=== PATIENT | female | born 1990 | race Caucasian/White ===

== ENCOUNTER 2024-07-25 06:32 | Day surgery (SDC) | payer OTHER, SELFPAY | END 2024-07-25 14:30 | disposition home or self-care (01) | LOC: GI 06:32 | PROVIDERS: ATTENDING PHYSICIAN Internal Medicine Gastroenterology | DX: R14.0 Abdominal distension (gaseous) (principal); R11.2 Nausea with vomiting, unspecified; R13.10 Dysphagia, unspecified | CPT/HCPCS: 43239; 88305; 88342 ==

== ENCOUNTER 2025-02-28 15:04 | Emergency (ER) | payer OTHER, SELFPAY ==
[2025-02-28 15:17] VITALS: BP 126/83
[2025-02-28 15:43] LABS: Hematocrit 41.6 % (37.0-47.0); Hemoglobin 14.5 g/dL (12.0-16.0); Mean Corp Hgb Conc. 34.9 g/dL (33.0-37.0); Mean Corpuscular Volume 93.3 fL (81.0-99.0); Nucleated Red Blood Cells % 0 %; Platelet Count 284 10^3/uL (130-400); Red Cell Dist. Width 11.8 % (11.5-14.5)
[2025-02-28 15:53] LABS: HCG, Serum Qualitative Screen Negative
[2025-02-28 15:58] LABS: ALT (SGPT) 23 U/L (0-35); AST (SGOT) 24 U/L (14-36); Albumin 4.5 g/dl (3.5-5.0); Alkaline Phosphatase 32 U/L (38-126); Blood Urea Nitrogen 17 mg/dl (7-17); Calcium 8.9 mg/dl (8.4-10.2); Carbon Dioxide 22 mmol/L (22-30); Chloride 109 mmol/L (98-107); Glucose 97 mg/dl (70-99); Potassium 4.6 mmol/L (3.5-5.1); Sodium 140 mmol/L (135-145); Total Protein 6.8 g/dl (6.3-8.2); eGFR > 60.00
--- NOTE | 2025-02-28 18:13 | ED.GENMED ---
History of Present Illness
General
Chief Complaint: Dizziness
Source: patient
Exam Limitations: none
Time Seen by Provider: 02/28/25 18:13
History of Present Illness
History of Present Illness:
34yoF with a history of interstitial cystitis, anxiety, and depression presenting for evaluation of dizziness x 3 days. Patient reports feeling like the room is spinning. Symptoms occur mostly if she moves her head to the left side or if she
sits/stands up. Dizziness subsides after about 30 seconds. She also reports a 7/10 headache which feels different from her migraines. She has been seen by her PCP who prescribed meclizine which does not seem to help. She tried the Gopi maneuver
at home yesterday which helped temporarily. She denies any vomiting, visual changes, ear pain, tinnitus. She has an appt scheduled with ENT on 03/18/25.
Phy Exam
General Physical Exam
General Presentation: well appearing and no apparent distress
General Skin: warm and dry
General Habitus: normal
General Mental: alert
ENT Exam
ENT Exam: normocephalic and other (L cerumen impaction)
Eye Exam
Eye Exam: PERRL, EOMI and conjunctiva normal
Cardiovascular Exam
Cardiovascular Exam: regular rate/rhythm
Pulmonary Exam
Pulmonary Exam: lungs clear, no respiratory distress, no rales, no crackles and no rhonchi
Neurological Exam
Neurological Exam: alert and other (PERRL. EOMs intact. Normal finger to nose and heel to barnett bilaterally. No gait ataxia. )
[place] Coma Scale
Eye Opening: Spontaneous
Verbal Response: Oriented
Motor Response: Obeys Commands
GCS Total Score: 15
Skin Exam
Skin Exam: normal color and warm/dry
Psychiatric Exam
Psychiatric Exam: normal mood/affect
Course
Orders/Labs/Results
Orders:
Orders
02/28/25 15:23
CT Head W/o Iv Contrast Urgent
Comment:
Reason For Exam: CROCKETT , dizzy
02/28/25 15:24
EKG [Electrocardiogram (*1)] Urgent
Reason for Study: Vertigo / Dizzy
EKG- Treatment ONCE
Test Result ONCE
02/28/25 15:30
CBC/With Diff [Complete Blood Count/With Diff] Urgent
Comprehensive Metabolic Panel Urgent
HCG, Serum Qualitative Screen Urgent
02/28/25 18:30
0.9% Sodium Chloride 1000 ml [Nss] 1,000 ml IV BOLUS
Diphenhydramine [Benadryl] 25 mg IV NOW STA
Ketorolac [Toradol] 15 mg IV NOW STA
Metoclopramide [Reglan] 10 mg IV NOW STA
Abnormal Lab Results
02/28/25
15:30
MCH 32.5 H pg
(27.0-31.0)
Lymphocytes % 20.1 L %
(20.5-51.1)
Chloride 109 H mmol/L
(98-107)
Alkaline Phosphatase 32 L U/L
(38-126)
02/28/25 15:30
02/28/25 15:30
Vital Signs
Initial and Last Documented VS:
Initial Vital Signs
Temp Pulse Resp BP Pulse Ox
98.6 F 80 16 126/83 98
02/28/25 15:17 02/28/25 15:17 02/28/25 15:17 02/28/25 15:17 02/28/25 15:17
Last Documented Vital Signs
Temp Pulse Resp BP Pulse Ox
98.6 F 80 16 126/83 98
02/28/25 15:17 02/28/25 15:17 02/28/25 15:17 02/28/25 15:17 02/28/25 18:14
MDM/Problems Addressed
Differential Diagnosis Includes:
34yoF here with dizziness x 3 days. Feels like room is spinning with position changes. Prescribed meclizine without improvement. Also c/o headache. VSS. There is a L cerumen impaction on exam. No nystagmus or ataxia noted. Patient able to ambulate
with a steady gait although she did have to pause after sitting up due to dizziness which resolved after about 15 seconds. Differential diagnosis includes: BPPV, vestibular neuronitis, Meniere's, cerumen impaction
Workup initiated in triage and labs unremarkable. EKG shows NSR. CT head negative for acute findings. Offered IV Valium/migraine cocktail which she is declining stating she just wants to go home at this point. I did perform the Gopi maneuver which
reproduced her vertigo symptoms. Script given for outpatient vestibular therapy. She has an appt with ENT scheduled in 2.5 weeks. She was advised to use Debrox gtts in her L ear. ED return precautions reviewed and she was discharged in stable
condition.
*Pulse Oximetry
SaO2: 98
Oxygen Mode of Delivery: Room air
Patient hypoxic: no (98%)
*EKG
Interpreted by ED Provider?: Yes
EKG Intrepretation Date: 02/28/25
Heart Rate: 73
Rate: normal
Rhythm: sinus
[place]: normal axis
Interval: normal interval
QRS Pattern: normal QRS
Ischemia: no ischemia
*Critical Care Note
Total Time (30-74mins, 75-104mins- exclusive of procedures): Not Applicable
ED Attending Note
-
Portions of this chart may have been created with voice recognition software.� Occasional wrong word or��sound alike� substitutions may have occurred due to the inherent limitations of voice recognition software.
Discharge Plan
Departure
Patient Disposition: Home (Routine Discharge)
Date of Disposition: 02/28/25
Time of Disposition: 18:46
Patient with high blood pressure during this ER visit?: No
Discharge Problem:
Vertigo
Instructions: Vertigo (a Type of Dizziness) (DC)
Activity Restrictions/Additional Instructions:
Continue taking meclizine as needed. You may also try the Gopi maneuver at home.
Please call on Sunday to schedule a follow-up with vestibular therapy as well as your family doctor. Return to the ER with any new or worsening symptoms.
Interventions
Interventions:
*Risk Screen - Suicide Last Done: 02/28/25 15:17
*General Assessment Last Done: 02/28/25 18:58
*Neglect/Abuse Screening Last Done: 02/28/25 15:17
*Nursing Disposition Last Done: 02/28/25 18:58
ED- Neurological Assessment Last Done: 02/28/25 18:48
ED- Cardiac Assessment Last Done: 02/28/25 18:58
ED Swallowing Screen Last Done: 02/28/25 18:48
Discharge Date and Time
Discharge Date/Time: 02/28/25 19:00
Print Language: CONGOLESE
== END 2025-02-28 19:00 | disposition home or self-care (01) ==
LOC: EMR 15:04
PROVIDERS: Emergency Medicine; EMERGENCY PHYSICIAN Emergency Medicine; FAMILY PHYSICIAN Internal Medicine
DX: R42 Dizziness and giddiness (principal); H61.22 Impacted cerumen, left ear
CPT/HCPCS: 99284; 70450; 80053; 84703; 85025; 93005